=== PATIENT | female | born 1995 | race Caucasian/White ===

== ENCOUNTER 2017-10-25 18:09 | Emergency (ER) | payer OTHER ==
[~2017-10-25] VITALS: Ht 177.8 cm; Wt 61.3 kg
[2017-10-25 18:10] VITALS: BP 133/85
[2017-10-25] MEDS ORDERED: KETOROLAC 30 MG/1 ML ONE (20:24)
[2017-10-25] MEDS ORDERED: KETOROLAC 30 MG/1 ML IM ONE (20:30)
== END 2017-10-25 20:42 | disposition home or self-care (01) ==
LOC: ED 20:36
DX: S06.0X0A Concussion without loss of consciousness, initial encounter (principal); X58.XXXA Exposure to other specified factors, initial encounter; Y93.89 Activity, other specified; Y92.89 Other specified places as the place of occurrence of the external cause; Y99.8 Other external cause status
CPT/HCPCS: 70450; 96372; 99284; J1885